=== PATIENT | male | born 1975 ===

== ENCOUNTER 2018-10-20 14:53 | Emergency (ER) | payer OTHER ==
[~2018-10-20] VITALS: Ht 175.3 cm; Wt 106.0 kg
[2018-10-20] MEDS ORDERED: ASPIRIN 81 MG TABLET CHEW PO ONE (15:30)
[2018-10-20] MEDS ORDERED: PLEASE ENTER ALLERGIES MC SCH (15:30)
[2018-10-20 15:45] LABS: BASOPHILS # (AUTO) 0.05 x10^3/uL (0-0.1); BASOPHILS % (AUTO) 1 % (0-1); EOSINOPHILS # (AUTO) 0.04 x10^3/uL (0-0.4); EOSINOPHILS % (AUTO) 1 % (1-7); LYMPHOCYTES # (AUTO) 2.28 x10^3/uL (1-3.4); LYMPHOCYTES % (AUTO) 30 % (22-44); MD NO; MEAN CORPUSCULAR HGB CONC 33.5 g/dL (33.2-36.2); MEAN CORPUSCULAR VOLUME 95.6 fL (81-97); MONOCYTES # (AUTO) 0.58 x10^3/uL (0.2-0.8); MONOCYTES % (AUTO) 8 % (2-9); NEUTROPHILS # (AUTO) 4.76 x10^3/uL (1.8-6.8); NEUTROPHILS % (AUTO) 62 % (42-75); PLATELET COUNT 359 x10^3/uL (130-400); RED BLOOD COUNT 4.93 x10^6/uL (4.38-5.82); RED CELL DISTRIBUTION WIDTH 12.8 % (9.4-14.8)
[2018-10-20] MEDS ORDERED: ASPIRIN 81 MG TABLET CHEW ONE (15:46)
[2018-10-20 15:55] LABS: ALANINE AMINOTRANSFERASE 36 U/L (12-78); ALBUMIN 4.1 g/dL (3.4-5.0); ANION GAP 7 mmol/L (5-15); CALCIUM 9.4 mg/dL (8.5-10.1); CHLORIDE 107 mmol/L (98-107); CREATININE 0.88 mg/dL (0.7-1.3); INTERNATIONAL NORMALIZED RATIO 0.94 (0.93-1.1)
[2018-10-20 15:58] LABS: ALKALINE PHOSPHATASE 90 U/L (45-117); BILIRUBIN,TOTAL 1.1 mg/dL (0.2-1.0); TROPONIN I < 0.015 ng/mL (0.000-0.045)
[2018-10-20 16:30] VITALS: BP 158/100
== END 2018-10-20 16:34 | disposition home or self-care (01) ==
LOC: ED 16:21
DX: R07.89 Other chest pain (principal); I10 Essential (primary) hypertension
CPT/HCPCS: 36415; 71045; 80053; 83880; 84484; 85025; 85610; 85730; 93005; 99284